=== PATIENT | female | born 1970 | race Caucasian/White ===

== ENCOUNTER 2017-06-23 08:00 | Day surgery (SDC) | payer BC, SELFPAY ==
[2017-06-23] VITALS (7 sets, daily range): BP systolic 109–121; BP diastolic 63–84; PULSE 62–80; RESP 16–21; TEMP 35.9–37.3; O2SAT 99–100; BMI 20.9
[2017-06-23 08:35] LABS: Internal QC Validated? YES +Cl - CLEAR BKGD; Pregnancy, Urine Negative Negative
--- NOTE | 2017-06-23 09:18 | COLBX_PTH ---
PATIENT: MAXINE BARROSO LOC: EN U#:[id number] AGE/SX: 46/F ROOM: RE06/23/[address]: Dr. Lois Hood MD : 1970 BED: DIS: 06/23/2017 SPEC #: [id number] RECD: 06/23/17 12:25 STATUS: SAMANTHA JONATHAN #: [id number] SUSIE: 06/23/17 09:[address]: Lois Hood DEPT: SURGICAL PATHOLOGY RECD BY: Lore Webster ENTERED: 06/23/17 14:16 SP TYPE: COLON BX OTHR DR: Dr. Fransisco Brannon MD Tissues: A - Ascending colon B - Sigmoid colon biopsy C - Rectum, NOS Procedures: Surgery Specimen Level IV HEADER OPERATION: Colonoscopy with biopsy PRE-OP DIAGNOSIS: Diarrhea TISSUE SUBMITTED: A. Ascending colon biopsy, B. Sigmoid, random colon biopsy, C. Rectal mass biopsy MICROSCOPIC DIAGNOSIS A. Ascending colon, biopsy: Fragments of colonic mucosa, no pathologic diagnosis. B. Sigmoid colon, random biopsy: Fragments of colonic mucosa, no pathologic diagnosis. C. Rectal mass, biopsy: Fragments of villous adenoma. Negative for invasive carcinoma in the submitted specimen. SJ:rg 06/24/17 COMMENT C. Correlation with clinical, endoscopic findings and appropriate follow up are necessary. This case is discussed with Dr. Hood on 06/24/17. MICROSCOPIC DESCRIPTION Slides are reviewed. GROSS DESCRIPTION A - Received in fixative is one container labeled with the patient's name and designated ascending colon biopsy. The specimen consists of multiple irregular fragments of light ventura soft tissue that in aggregate measure 0.4 x 0.4 x 0.1 cm. The specimen is totally submitted in one cassette. B - Received in fixative is one container labeled with the patient's name and designated sigmoid random colon biopsy. The specimen consists of one irregular fragment of light ventura soft tissue that measures 0.4 x 0.2 x 0.1 cm. The specimen is totally submitted in one cassette. C - Received in fixative is one container labeled with the patient's name and designated rectal mass biopsy. The specimen consists of multiple irregular fragments of light ventura soft tissue that in aggregate measure 2 x 1 x 0.1 cm. The specimen is totally submitted in one cassette. / MARIANA:[place] 06/23/17 TC:1 CPT: 80458 x3
[2017-06-23 10:50] LABS: ALB/GLOB Ratio 0.8 RATIO (0.9-2.4); AST(SGOT) 21 U/L (15-37); Alanine Aminotransfer ALT/SGPT 21 U/L (13-56); Albumin, Serum 3.3 g/dL (3.2-5.0); Alkaline Phosphatase 51 U/L (45-117); Anion Gap 11 (5-15); BUN 10 mg/dL (7-18); BUN/Creat Ratio 12.3 RATIO (10-20); Calcium,Total 8.5 mg/dL (8.5-10.1); Chloride 106 mmol/L (98-107); Creatinine, Serum 0.81 mg/dL (0.55-1.02); EST Glomerular Filtration Rate 81 mL/min (>60); Est Glom Filt Rate - Afr Amer 98 mL/min (>60); Estimated Creatinine Clearance 69.37 ml/min; Globulin 4.4 g/dL (2.2-4.2); Glucose 76 mg/dL (74-106); Potassium 3.4 mmol/L (3.5-5.1); Protein, Total 7.7 g/dL (6.4-8.2); Sodium Level 134 mmol/L (136-145)
--- NOTE | 2017-06-23 13:26 | OP.PCM_ITS ---
Report of Operation Date of Procedure: 06/23/17 Pre-Operative Diagnosis: Diarrhea, bright red blood per rectum Post-Operative Diagnosis: Rectal mass Surgery/Procedure Performed:: Colonoscopy with biopsy Type of Anesthesia:: MAC Anesthesiologist: Keron Langston Specimen's removed: 1. Random biopsy of the descending colon, 2. Random biopsy of sigmoid colon, 3. biopsies rectal mass Estimated Blood Loss (mL): Minimal Description of Procedure: Procedure: Colonoscopy After reviewing the risks benefits, the patient was deemed in satisfactory condition to undergo procedure. After obtaining informed consent, the scope was passed under direct visualization. Throughout the procedure, the patient's blood pressure pulse and position saturations were monitored continuously anesthesia. The colonoscope was introduced through the anus and advanced to the cecum, identified by the appendiceal orifice, IC valve and transillumination. The colonoscopy was performed without difficulty. The patient tolerated procedure well. Quality of bowel prep was good. Findings: The perianal and digital rectal exam revealed external and internal hemorrhoids at 3:00 (right side) and also a rectal mass at about 7:00 (left side) with the proximal edge of the mass at about 4-5 cm from the anal verge. Rectal mass with broad base was seen just proximal to the anal verge multiple biopsies were taken with cold forceps of this area, see pictures. Otherwise the colon (entire examined portion) appeared normal. Retroflexed view of the distal rectum and anal verge showed the rectal mass with broad base with area that was polypoid as well as part that was sessile Impression: 1. Rectal mass, multiple biopsies were taken with cold forceps biopsies 2. External and internal hemorrhoid at 3:00 (right side) Recommendations: Await biopsies Will get a CBC and CMP and CEA in PACU Will refer to a colorectal surgeon, patient prefers [facility]. - Complications none
[2017-06-24 09:21] LABS: Carcinoembryonic Antigen 1.4 ng/mL (0.0-4.7)
== END 2017-06-23 10:35 | disposition home or self-care (01) ==
LOC: EN 08:01
PROVIDERS: Anesthesiology; Family Provider Family Medicine; PCP Family Medicine; Visit Provider Surgery
PROC: 0DJD8ZZ Inspection of Lower Intestinal Tract, Via Natural or Artificial Opening Endoscopic (ICD-10-PCS; CPT 45378; principal; 2017-06-23 08:55)
DX: D12.8 Benign neoplasm of rectum (principal); K64.8 Other hemorrhoids; K64.4 Residual hemorrhoidal skin tags; K58.9 Irritable bowel syndrome, unspecified
CPT/HCPCS: 45380; 36415; 80053; 81025; 82378; 88305; J7120

== ENCOUNTER → 2017-09-16 16:40 | Outpatient (CLI) | payer BC, SELFPAY ==
[2017-09-16 18:05] LABS: Absolute Lymphocyte Count 1.52 X10^3/ul (0.83-4.51); Absolute Neutrophil Count 6.6 X10^3/uL (2.0-7.7); Basophil# 0.01 X10^3/uL; Basophil% 0.1 % (0-1); Eosinophil# 0.06 X10^3/uL; Eosinophils% 0.7 % (0-5); Hematocrit 42.6 % (37-47); Hemoglobin 14.2 g/dl (12.0-15.0); Lymphocyte # 1.52 X10^3/ul (4.0); Lymphocyte % 17.2 % (19-41); Mean Corp Hgb Conc 33.3 g/gl (32-36); Mean Corpuscular Hgb 28.9 pg (27.0-32.0); Mean Corpuscular Volume 86.8 fL (81-99); Mean Platelet Vol. 10.3 fl (6.2-12.0); Monocyte# 0.67 X10^3/uL; Monocyte% 7.6 % (0-10); Neutrophil # 6.59 X10^3/uL (2.7-7.7); Neutrophil % 74.3 % (47-70); Platelet Count 346 K/mm3 (150-450); RBC Distribution Width CV 13.4 % (11.6-14.6); RBC Distribution Width SD 41.8 fl (35.1-43.9); Red Blood Count 4.91 M/mm3 (4.2-5.4); White Blood Count 8.9 K/mm3 (4.4-11.0)
[2017-09-16 18:06] LABS: POSITIVE COUNT NO; POSITIVE DIFFERENTIAL NO; POSITIVE MORPHOLOGY NO
== END ==
PROVIDERS: Family Provider Family Medicine; PCP Family Medicine; Visit Provider Family Medicine
DX: R22.9 Localized swelling, mass and lump, unspecified (principal)
CPT/HCPCS: 36415; 85025

== ENCOUNTER → 2017-10-07 10:41 | Outpatient (CLI) | payer BC, SELFPAY ==
--- NOTE | 2017-10-07 10:43 | US_ITS ---
STUDY: SUPERFICIAL ULTRASOUND - RIGHT AXILLA REASON FOR EXAM: Female, 46 years old. Right axillary lump TECHNIQUE: A superficial ultrasound was performed with real-time and static villagomez-scale imaging. COMPARISON: None. FINDINGS: Scanning in the region of clinical abnormality demonstrates 3 oval regions. The first measures 1 x 1.1 x 0.6 cm and has a sonographic appearance of a lymph node. The second measures 0.9 x 0.7 x 0.4 cm, which also has appearance of a lymph node. The third region measures 1.5 x 0.9 x 0.7 cm. This is slightly more echogenic than the 2 lymph nodes, with no definite internal vascularity. No drainable fluid collection. US/Ext Non Vasc Limited/Soft Tiss IMPRESSION: There are 3 small lesions within the right axilla, 2 of which likely represent small lymph nodes. The third is slightly more hypoechoic, which could potentially represent a slightly inflamed lymph node or other mass. These can be followed clinically or with a follow-up ultrasound. If the lesion persists, tissue sampling can be performed. Electronically Signed: Rich Sheets DO at 11:52 EDT Tel , Service support ,
== END ==
PROVIDERS: Family Provider Family Medicine; PCP Family Medicine; Visit Provider Family Medicine
DX: R22.30 Localized swelling, mass and lump, unspecified upper limb (principal)
CPT/HCPCS: 76882

== ENCOUNTER → 2018-02-07 14:43 | Outpatient (CLI) | payer BC, SELFPAY ==
--- NOTE | 2018-02-07 14:45 | BI_ITS ---
MAMMOGRAPHY - BILATERAL SCREENING REASON FOR EXAM: Female, 47 years old. Routine annual screening examination. PERTINENT HISTORY: Grandmother with breast cancer. Aunt with breast cancer. TECHNIQUE: Digital bilateral breast osman (3D mammographic acquisition) in the CC and MLO projections. 2-D mediolateral oblique (MLO) and craniocaudad (CC) views of both breasts were obtained. CAD: Full Field Digital Mammography with Computer Added Detection was performed. COMPARISON: Comparison is made with prior study dated November 09, 2016 and September 02, 2015. FINDINGS: Breast Composition: The breasts are extremely dense, which lowers the sensitivity of mammography. There are no dominant masses or suspicious calcifications. No other significant abnormalities are identified. There has been no significant change since the prior study. BI/SCREENING MAMM (CAD), BILAT IMPRESSION: Stable bilateral screening mammogram. Yearly follow-up mammogram recommended. (A) ASSESSMENT CATEGORY: BIRADS Category 1: Negative. A letter regarding these results will be sent to the patient by the facility within 30 days. Approximately 10% of breast cancers are not detected by mammography. A normal mammogram should not delay biopsy of a clinically suspicious abnormality. [id number] Electronically Signed: Isidro Del Cid MD at 8:33 EDT Tel [phone], Service support ,
== END ==
PROVIDERS: Family Provider Family Medicine; PCP Family Medicine; Visit Provider Obstetrics & Gynecology
DX: Z12.31 Encounter for screening mammogram for malignant neoplasm of breast (principal)
CPT/HCPCS: 77063; 77067

== ENCOUNTER → 2018-04-01 15:26 | Outpatient (CLI) | payer BC, SELFPAY ==
[2017-06-23 08:24] VITALS: BMI 20.9
[2018-04-01 18:05] LABS: Anion Gap 8 (5-15); BUN 13 mg/dL (7-18); BUN/Creat Ratio 16.8 RATIO (10-20); Calcium,Total 8.5 mg/dL (8.5-10.1); Chloride 106 mmol/L (98-107); Creatinine, Serum 0.77 mg/dL (0.55-1.02); EST Glomerular Filtration Rate 85 mL/min (>60); Est Glom Filt Rate - Afr Amer 103 mL/min (>60); Glucose 90 mg/dL (74-106); Magnesium 2.2 mg/dL (1.6-2.6); Potassium 3.9 mmol/L (3.5-5.1); Sodium Level 142 mmol/L (136-145); Thyroid Stim Hormone (TSH) 2.67 uIU/mL (0.358-3.74)
== END ==
PROVIDERS: Family Provider Family Medicine; PCP Family Medicine; Visit Provider Family Medicine
DX: R00.2 Palpitations (principal)
CPT/HCPCS: 36415; 80048; 83735; 84443

== ENCOUNTER → 2018-06-08 14:52 | Outpatient (CLI) | payer BC, SELFPAY ==
[2017-06-23 08:24] VITALS: BMI 20.9
[2018-06-15 11:06] LABS: HPV Reflexed? NOT INDICATED
== END ==
PROVIDERS: Visit Provider Obstetrics & Gynecology
DX: Z12.4 Encounter for screening for malignant neoplasm of cervix (principal)
CPT/HCPCS: 87624; 88175; G0145

== ENCOUNTER → 2019-04-20 08:20 | Outpatient (CLI) | payer BC, SELFPAY ==
--- NOTE | 2019-04-20 08:22 | BI_ITS ---
MAMMOGRAPHY - BILATERAL SCREENING 3-D TOMOSYNTHESIS REASON FOR EXAM: Female, 48 years old. Routine annual screening mammogram. PERTINENT HISTORY: History of biopsy in the past in 2016.. TECHNIQUE: 2-D mammograms and 3-D Tomosynthesis of the breast (s) were performed. CAD was performed. COMPARISON: February 07, 2018, November 09, 2016 FINDINGS: The breast composition is heterogeneously dense that can obscure small breast masses. Scattered benign calcifications are seen. No dense spiculated masses or suspicious microcalcifications are identified. No architectural distortion is identified. There is no skin thickening or retraction. Stable lymph nodes. There has been no significant change since the prior study. BI/SCREEN MAMM (CAD) W/MYNOR BILAT IMPRESSION: No mammographic signs of malignancy. Routine yearly mammograms recommended. ASSESSMENT CATEGORY: BIRADS Category 2: Benign. A letter regarding these results will be sent to the patient by the facility within 30 days. FOLLOW UP RECOMMENDATION: Yearly follow up mammogram recommended. (A) Approximately 10% of breast cancers are not detected by mammography. A normal mammogram should not delay biopsy of a clinically suspicious abnormality. Electronically Signed: Maciej Venegas MD at 11:53 EST , Service support ,
== END ==
PROVIDERS: Family Provider Family Medicine; PCP Family Medicine; Referring Provider Obstetrics & Gynecology; Visit Provider Obstetrics & Gynecology
DX: Z12.31 Encounter for screening mammogram for malignant neoplasm of breast (principal)
CPT/HCPCS: 77063; 77067

== ENCOUNTER → 2020-10-02 | Outpatient (CLI) | payer BC, SELFPAY ==
[2017-06-23 08:24] VITALS: BMI 20.9
[2020-10-04 16:45] LABS: HPV Reflexed? NOT INDICATED
== END | disposition home or self-care (01) ==
LOC: LABSPEC 11:53
PROVIDERS: PCP Family Medicine; Visit Provider Obstetrics & Gynecology
DX: Z12.4 Encounter for screening for malignant neoplasm of cervix (principal)
CPT/HCPCS: 88175; G0145

== ENCOUNTER → 2020-12-20 07:58 | Outpatient (CLI) | payer BC, SELFPAY ==
--- NOTE | 2020-12-20 08:25 | BI_ITS ---
MAMMOGRAPHY - BILATERAL SCREENING REASON FOR EXAM: Female, 50 years old. Routine annual screening examination. PERTINENT HISTORY: Grandmother with breast cancer. Aunt with breast cancer. TECHNIQUE: Digital bilateral breast mynor (3D mammographic acquisition) in the CC and MLO projections. 2-D mediolateral oblique (MLO) and craniocaudad (CC) views of both breasts were obtained. CAD: Full Field Digital Mammography with Computer Added Detection was performed. COMPARISON: Comparison is made with prior examination dated 04/20/2019 and 02/07/2018. FINDINGS: Breast Composition: The breasts are extremely dense, which lowers the sensitivity of mammography. There are no dominant masses or suspicious calcifications. No other significant abnormalities are identified. There has been no significant change since the prior study. BI/SCRN MAMM (CAD)W/MYNOR BILAT IMPRESSION: Stable bilateral screening mammogram. Yearly follow-up mammogram recommended. (A) ASSESSMENT CATEGORY: BIRADS Category 1: Negative. A letter regarding these results will be sent to the patient by the facility within 30 days. Approximately 10% of breast cancers are not detected by mammography. A normal mammogram should not delay biopsy of a clinically suspicious abnormality. [id number] Electronically Signed: Isidro Del Cid MD at 9:34 EDT , Service support ,
== END ==
PROVIDERS: PCP Family Medicine; Referring Provider Obstetrics & Gynecology; Visit Provider Obstetrics & Gynecology
DX: Z12.31 Encounter for screening mammogram for malignant neoplasm of breast (principal)
CPT/HCPCS: 77063; 77067

== ENCOUNTER → 2022-04-07 | Outpatient (CLI) | payer BC, SELFPAY ==
--- NOTE | 2022-04-07 12:55 | BI_ITS ---
MAMMOGRAPHY - BILATERAL SCREENING REASON FOR EXAM: Female, 51 years old. Routine annual screening examination. PERTINENT HISTORY: Grandmother with breast cancer. Aunt with breast cancer. TECHNIQUE: Digital bilateral breast mynor (3D mammographic acquisition) in the CC and MLO projections. 2-D mediolateral oblique (MLO) and craniocaudad (CC) views of both breasts were obtained. CAD: Full Field Digital Mammography with Computer Added Detection was performed. COMPARISON: Comparison is made with prior study dated 12/20/2020 and 04/20/2019. FINDINGS: Breast Composition: The breasts are extremely dense, which lowers the sensitivity of mammography. There are no dominant masses or suspicious calcifications. No other significant abnormalities are identified. There has been no significant change since the prior study. BI/SCRN MAMM (CAD)W/MYNOR BILAT IMPRESSION: Stable bilateral screening mammogram. Yearly follow-up mammogram recommended. (A) ASSESSMENT CATEGORY: BIRADS Category 1: Negative. A letter regarding these results will be sent to the patient by the facility within 30 days. Approximately 10% of breast cancers are not detected by mammography. A normal mammogram should not delay biopsy of a clinically suspicious abnormality. [id number] Electronically Signed: Isidro Del Cid MD at 13:56 EST ,
== END | disposition home or self-care (01) ==
LOC: OPBI 12:53
PROVIDERS: PCP Family Medicine; Referring Provider Student in an Organized Health Care Education/Training Program; Visit Provider Student in an Organized Health Care Education/Training Program
DX: Z12.31 Encounter for screening mammogram for malignant neoplasm of breast (principal); Z80.3 Family history of malignant neoplasm of breast
CPT/HCPCS: 77063; 77067

== ENCOUNTER 2022-04-10 08:12 | Outpatient (CLI) | payer BC, SELFPAY ==
--- NOTE | 2022-04-10 09:05 | BI_ITS ---
MAMMOGRAPHY - UNILATERAL DIAGNOSTIC: RIGHT BREAST REASON FOR EXAM: Female, 51 years old. Abnormal screening mammogram. PERTINENT HISTORY: Grandmother with breast cancer. Aunt with breast cancer. TECHNIQUE: Compression spot views and mediolateral oblique views of the right breast were obtained. CAD: Full Field Digital Mammography with Computer Added Detection was performed. COMPARISON: Comparison is made with prior study dated 04/07/2022. FINDINGS: Breast Composition: The breasts are extremely dense, which lowers the sensitivity of mammography. There are no dominant masses or suspicious calcifications. No other significant abnormalities are identified. BI/DIAG MAMM W/CAD, UNILAT IMPRESSION: Negative unilateral diagnostic mammogram. Targeted ultrasound of the right axillary region is recommended for further evaluation. ASSESSMENT CATEGORY: BIRADS Category 0: Incomplete. Need additional imaging evaluation. A letter regarding these results will be sent to the patient by the facility within 30 days. Approximately 10% of breast cancers are not detected by mammography. A normal mammogram should not delay biopsy of a clinically suspicious abnormality. Electronically Signed: Isidro Del Cid MD at 13:19 EST ,
--- NOTE | 2022-04-10 09:48 | US_ITS ---
STUDY: ULTRASOUND BREAST - RIGHT REASON FOR EXAM: Female, 51 years old. Abnormal screening mammogram. TECHNIQUE: Axial and longitudinal images of the RIGHT breast were performed with a high resolution ultrasound transducer. # OF IMAGES: 36 COMPARISON: Comparison is made with prior mammogram dated 04/07/2022. FINDINGS: RIGHT Breast: The upper half of the right breast was examined with ultrasound. No sonographic abnormality is seen. US/Breast Limited Unilateral IMPRESSION: Unremarkable targeted ultrasound of the right breast. ASSESSMENT CATEGORY: BIRADS Category 1: Negative. A letter regarding these results will be sent to the patient by the facility within 30 days. Electronically Signed: Isidro Del Cid MD at 10:38 EST ,
== END 2022-04-10 23:59 | disposition home or self-care (01) ==
LOC: OPBI 09:04
PROVIDERS: PCP Family Medicine; Visit Provider Student in an Organized Health Care Education/Training Program
DX: R92.2 Inconclusive mammogram (principal); Z80.3 Family history of malignant neoplasm of breast
CPT/HCPCS: 76642; 77061; 77065; G0279

== ENCOUNTER → 2023-06-07 | Outpatient (CLI) | payer BC, SELFPAY ==
--- NOTE | 2023-06-07 08:20 | BI_ITS ---
MAMMOGRAPHY - BILATERAL SCREENING REASON FOR EXAM: Female, 52 years old. Routine annual screening examination. PERTINENT HISTORY: Grandmother with breast cancer. Aunt with breast cancer. TECHNIQUE: Digital bilateral breast mynor (3D mammographic acquisition) in the CC and MLO projections. 2-D mediolateral oblique (MLO) and craniocaudad (CC) views of both breasts were obtained. CAD: Full Field Digital Mammography with Computer Added Detection was performed. COMPARISON: Comparison is made with prior study dated April 10, 2022 and April 07, 2022. FINDINGS: Breast Composition: The breasts are extremely dense, which lowers the sensitivity of mammography. There are no dominant masses or suspicious calcifications. No other significant abnormalities are identified. There has been no significant change since the prior study. BI/SCRN MAMM (CAD)W/MYNOR BILAT IMPRESSION: Stable bilateral screening mammogram. Yearly follow-up mammogram recommended. (A) ASSESSMENT CATEGORY: BIRADS Category 1: Negative. A letter regarding these results will be sent to the patient by the facility within 30 days. Approximately 10% of breast cancers are not detected by mammography. A normal mammogram should not delay biopsy of a clinically suspicious abnormality. [id number] Electronically Signed: Isidro Del Cid MD at 9:50 EST ,
--- OUTSIDE RECORDS SUMMARY | 2023-06-07 09:17 | XMS RPT_ITS | CCD ---
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 Name Role Phone Lois Hood MD Unavailable [phone] MARLENY SAAVEDRA Primary Care Unavailable SASHA MAURICIO Attending Unavailable Medications Completed/Discontinued Medications Medication Drug Class(es) Dates Sig (Normalized) Sig (Original) NORGESTIM-ETH ESTRAD TRIPHASIC (1 source) take 1 tablet by sean th once daily TRI-SPRINTEC 0.18/0.215/0.25 MG-35 MCG TABS One tablet by mouth daily NORGESTIM-ETH ESTRAD TRIPHASIC [id number] Nelson Mosquera Problems Problem Classification Problem Date Documented Da te Episodic/Chronic Nonmalignant breast conditions (1 source) Pain of breast; Translations: [Mastodynia] Onset: 11-30-2013 11-30-2013 Episodic Other connective tissue disease (1 source) Mass of body structure; Translations: [Localized swelling, mass and lump, unspecified] 03-08-2014 Episodic Results Test Name Value Interpretation Reference Range Facil ity Vital Signs Date Time Vital Sign Value Performing Clinician Facility 03-16-2014 14:40-0500 BMI (Body Mass Index) 22.42 kg/m2 Lois Hood MD [facility] Work Phone: 03-16-2014 14:40-0500 Body Temperature 99.3 [degF] Lois Hood MD [facility] Work Phone: 03-16-2014 14:40-0500 BP Diastolic 91 mm[Hg] Lois Hood MD [facility] Work Phone: 03-16-2014 14:40-0500 BP Systolic 142 mm[Hg] Lois Hood MD [facility] Work Phone: 03-16-2014 14:40-0500 BSA (Body Surface Area) 1.53 m2 Lois Hood MD [facility] Work Phone: 03-16-2014 14:40-0500 Pulse (Heart Rate) 67 /min Lois Hood MD [facility] Work Phone: 03-16-2014 14:40-0500 Respiratory Rate 14 /min Lois Hood MD [facility] Work Phone: 03-16-2014 14:40-0500 Weight 54.7 kg Lois Hood MD [facility] Work Phone: 11-30-2013 15:44-0400 Height 156.21 cm Lois Hood MD [facility] Work Phone: Encounters Encounter Date Encounter Type Care Provider Facility Start: 05-20-2023 End: 05-20-2023 ambulatory MARLENY SAAVEDRA Facility:[facility] Plan of Treatment Date Care Activity Detail Author Patient Education BREAST+FULLNES S+VERSUS+BREAST+ENG ORGEMENT [facility] Work Phone: Payers Date Payer Category Payer Unknown [id number] Progress note 05-20-2023 Note Date & Type Note Facility 05-20-2023 Note HNO ID: [id number] Author: SASHA MAURICIO MD Service: ? Author Type: Physician Type: Progress Notes Filed: 05/20/2023 14:59 Note Text: Necktie Stitcher offered: Patient declines. Mcfarlane is a 52 year old who presents for an annual gynecologic exam without complaints. Some possible menopausal changes. Had a prolonged menses. That stopped. Now no menses for a couple of months. Hot flashes were random now rare during the day but more at night. NO night sweats Postmenopausal: perimenopausal HRT use: No. Last Pap: normal HPV: negative History of abnormal pap: No Last mammogram: 2022 normal History of abnormal mammogram: No Sexually active: Yes OB History T0 L2 SAB0 IAB0 Ectopic0 Multiple0 Live Births0 Insurance Checker History LMP: 07/01/2017, Perimenopausal Age at Menarche: Age at First : Age at Menopause: Insurance Checker History Comments: Sexual Activity: Yes; Male Contraception: No contraception data on record PAST MEDICAL HISTORY Diagnosis Date Chronic venous insufficiency Varicose veins PAST SURGICAL HISTORY Procedure Laterality Date PAST SURGICAL HISTORY OF tumor removed from colon, begnin STAB PHLEBECTOMY VARICOSE VEINS >20 FAMILY HISTORY Problem Relation Age of Onset No Known Problems Mother Heart Attack Father Stroke Father COPD Father Stroke Maternal Grandmother No Known Problems Maternal Grandfather Heart Attack Paternal Grandmother Breast Cancer Paternal Grandmother Cancer Paternal Grandfather stomach Cancer Other breast SOCIAL HISTORY Social History Tobacco Use Smoking status: Never Smokeless tobacco: Never Vaping Use Vaping Use: Never used Substance Use Topics Alcohol use: No Drug use: No REVIEW OF SYSTEMS Abdomen: No abdominal pain, nausea, vomiting, diarrhea, or constipation. No bloating, early satiety, indigestion, or increased flatulence. Bladder: No dysuria, gross hematuria, urinary frequency, urinary urgency, or incontinence Breast: No breast lumps, nipple d/c, overlying skin changes, redness or skin retraction Allergies and current medication updated:Yes EXAM: BP 120/80 Ht 5' 2 (1.58m) Wt 137 lb (62.1kg) LMP 07/01/2017 BMI 25.05 kg/(m2). GENERAL: pleasant, female in no apparent distress HEENT: Normocephalic, atraumatic, mucus membranes moist, and no lesions NECK: Supple, full range of motion, no adenopathy, and thyroid normal DERMATOLOGY: Normal, without lesions, non-icteric, and non-hirsute BREAST: soft, non-tender, symmetric, no dominant mass, normal nipple-areolar complex, no lymphadenopathy, and no nipple discharge CHEST: Normal inspiratory effort ABDOMEN: soft, non-tender, and no masses PELVIC: external genitalia normal, normal Bartholin's glands, urethra, Bearden's glands, no vulvar lesions, no cervical lesions, good vaginal support, physiologic discharge present, normal appearing perineal body and perianal region BIMANUAL: uterus normal size, shape and consistency, no adnexal masses, and non-tender RECTOVAGINAL: deferred. NEURO: alert and oriented x3,exam grossly non-focal EXTREMITIES: normal ASSESSMENT/PLAN: 1) Health maintenance: Pap/HPV up to date. Mammogram ordered Colon cancer screening: ordered GI consult 2) Follow up one year or sooner as needed d/w her hot flashes and symptomatic measures contact office if desires treatment Sasha Mauricio MD [facility] Summary Purpose Family History No Family History Records Found Advance Directives No Advanced Directives Records Found Additional Source Comments INFORMATION SOURCE (unrecogn ized section and content) FOR RECORDS PERTAINING TO PATIENTS WHO ARE OR HAVE BEEN ENROLLED IN A CHEMICAL DEPENDENCY/SUBSTANCEABUSE PROGRAM, SOME INFORMATION MAY BE OMITTED. This clinical summary was aggregated from multiple sources. Caution should be exercised in using it in the provision of clinical care. This summary normalizes information from multiple sources, and as a consequence, information in this document may materially change the coding, format and clinical context of patient data. In addition, data may be omitted in some cases. CLINICAL DECISIONS SHOULD BE BASED ON THE PRIMARY CLINICAL RECORDS. [employer] provides no warranty or guarantee of the accuracy or completeness of information in this document.
== END | disposition home or self-care (01) ==
LOC: OPBI 08:19
PROVIDERS: PCP Family Medicine; Referring Provider Obstetrics & Gynecology; Visit Provider Obstetrics & Gynecology
DX: Z12.31 Encounter for screening mammogram for malignant neoplasm of breast (principal); Z80.3 Family history of malignant neoplasm of breast
CPT/HCPCS: 77063; 77067

== ENCOUNTER → 2024-06-21 | Outpatient (CLI) | payer BC, SELFPAY ==
--- NOTE | 2024-06-21 09:04 | BI_ITS ---
PROCEDURE: SCRN MAMM (CAD)W/MYNOR BILAT REASON FOR EXAM: F, Age 53 y/o, grandmother with breast cancer. Aunt with breast cancer. Annual follow-up. TECHNIQUE: Bilateral screening digital breast tomosynthesis with 2D and 3D images. Computer aided detection. COMPARISON: Prior exam(s) dating back to June 07, 2023.. FINDINGS: The breasts are extremely dense which lowers the sensitivity of mammography. Stable examination. Stable fat containing bilateral axillary lymph nodes. No suspicious masses, areas of developing architectural distortion, or suspicious calcifications. BI/SCRN MAMM (CAD)W/MYNOR BILAT IMPRESSION: BI-RADS 2: BENIGN. RECOMMEND ANNUAL MAMMOGRAPHIC SCREENING. Follow-up code: Routine Follow-up The patient will be notified of the results by letter. Reading Location: [id number]
== END | disposition home or self-care (01) ==
LOC: OPBI 09:03
PROVIDERS: PCP Family Medicine; Referring Provider Nurse Practitioner Women's Health; Visit Provider Nurse Practitioner Women's Health
DX: Z12.31 Encounter for screening mammogram for malignant neoplasm of breast (principal)
CPT/HCPCS: 77063; 77067